=== PATIENT | female | born 1940 | race Native Hawaiian/Other Pacific Islander ===

== ENCOUNTER 2017-05-09 06:59 | Day surgery (SDC) | payer OTHER ==
--- NOTE | 2017-05-09 07:57 | Anesthesia Consultation ---
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
--- NOTE | 2017-05-09 07:58 | Anesthesia Day of Surgery ---
Anesthesia Day of Surgery - Day of Surgery Patient Examined: Yes Patient H&P Reviewed: Yes Patient is NPO: Yes
[2017-05-09] MEDS ORDERED: NACL 0.9% 1000 ML 1,000 ML IV SCH (08:00)
[2017-05-09] MEDS ORDERED: DIPRIVAN 10 MG/ML IV ONE ×2 (08:00)
--- NOTE | 2017-05-09 08:43 | Short Stay Summary ---
Short Stay Documentation - Allergies and Medications Current Medications: Allergies No Known Allergies Allergy (Verified 05/09/17 07:33) Home Medications Medication Instructions Recorded Confirmed Last Taken Type Losartan [Cozaar] 100 mg PO QDAY 05/09/17 05/09/17 05/08/17 History Omeprazole 40 mg PO DAILY 05/09/17 05/09/17 05/08/17 History Active Medications Sodium Chloride (Nacl 0.9% 1000 Ml) 1,000 mls @ 50 mls/hr IV DIRECT DERIC Last Admin: 05/09/17 08:09 Dose: 50 mls/hr - Brief post op/procedure progress note Date of procedure: 05/09/17 Pre-op diagnosis: Colon cancer screening Post-op diagnosis: same (1. Diverticulosis coli 2. Internal hemorrhoids) Procedure: Colonoscopy Anesthesia: MAC Findings: as above Surgeon: ELPIDIO CHATTERJEE Estimated blood loss: none Pathology: none Condition: stable - Disposition Condition at discharge: Stable Disposition: DC-01 TO HOME OR SELFCARE Short Stay Discharge Plan Activity: no restrictions Weight Bearing Status: Full Weight Bearing Diet: regular
[2017-05-09 09:35] VITALS: BP 133/66
--- NOTE | 2017-05-09 09:51 | Post Anesthesia Evaluation ---
- Post Anesthesia Evaluation Patient Participated: Yes Airway Patent: Yes Stable Respiratory Function: Yes Temp > 96.8F: Yes Pain Manageable: Yes Adequeate Hydration: Yes Anesthesia Complications: No Block Receding Appropriately: Not Applicable
== END 2017-05-09 09:25 | disposition home or self-care (01) ==
LOC: GIO 06:59
PROVIDERS: ATTEND Internal Medicine Gastroenterology
DX: Z12.11 Encounter for screening for malignant neoplasm of colon (principal); K64.0 First degree hemorrhoids; K57.30 Diverticulosis of large intestine without perforation or abscess without bleeding; K21.9 Gastro-esophageal reflux disease without esophagitis; M19.90 Unspecified osteoarthritis, unspecified site; Z98.890 Other specified postprocedural states; Z79.899 Other long term (current) drug therapy; Z83.3 Family history of diabetes mellitus
CPT/HCPCS: 45378; J2704; J7030